=== PATIENT | male | born 1965 | race Caucasian/White ===

== ENCOUNTER → 2018-10-20 | Outpatient (REF) ==
--- NOTE | 2018-10-20 18:37 | REP ---
RIGHT KNEE, THREE VIEWS: Three AP, oblique and lateral views of the right knee are performed. There is no acute fracture or dislocation. There is mild medial joint space narrowing. There is mild subchondral sclerosis. There is mild diffuse spurring. There is mild superior of the superior and inferior poles of the patella. There is a moderate joint effusion. IMPRESSION: Mild degenerative changes. Moderate joint effusion. Electronically Signed by Theodore Granados MD 10/21/2018 10:52 A
--- NOTE | 2018-10-20 19:07 | REP ---
LUMBOSACRAL SPINE, AP AND LATERAL: Three AP and lateral views of the lumbosacral spine are performed. There is slight retrolisthesis of L5 on S1 as well as L4 and L5. There is no compression fracture. There is mild diffuse spurring. There is moderate disc space narrowing and subchondral sclerosis at L3-4, L4-5, and L5-S1. There is sclerosis and spurring at the posterior facet joints at L5-S1. Posterior elements are intact. There is slight curvature to the left. IMPRESSION: Degenerative changes as above without compression fracture. Electronically Signed by Theodore Granados MD 10/21/2018 10:56 A
== END ==
LOC: M SMT 13:58
PROVIDERS: ATTEND Internal Medicine
DX: Z02.71 Encounter for disability determination (principal)